=== PATIENT | male | born 1965 | race African-American/Black ===

== ENCOUNTER 2017-01-15 20:10 | Emergency (ER) | payer MEDICARE, OTHER ==
[~2017-01-15] VITALS: Ht 188 cm; Wt 86.2 kg
[~2017-01-15 20:10] MED LIST: PANT40TA3 PO
[2017-01-15 20:16] VITALS: BP 119/62
--- NOTE | 2017-01-15 20:28 | PHYS DOC ---
Past Medical History Past Medical History: Diabetes-Type II, PA Past Surgical History: No Surgical History Alcohol Use: None Drug Use: None Adult General Chief Complaint Chief Complaint: ALTERED MENTAL STATUS [facility] HPI Patient is a 51 year old male presenting to the emergency department for evaluation of confusion. Reportedly patient did not want to get in his care givers vehicle and they thought that he was more confused so he was sent to the emergency department for further evaluation. Patient has no complaints other than he is hungry and thirsty security was given a box lunch and 2 bottles of Gatorade and he says that he is feeling much better now. Caregiver came back and says that he is now his baseline and would like to take him home. Review of Systems Review of Systems Constitutional: Denies fever or chills [] Respiratory: Denies cough or shortness of breath [] Cardiovascular: No additional information not addressed in HPI [] GI: Denies abdominal pain, nausea, vomiting, bloody stools or diarrhea [] Musculoskeletal: Denies back pain or joint pain [] Neurologic: Denies headache, focal weakness or sensory changes [] Allergies Allergies Allergies Coded Allergies Type Severity Reaction Last Updated Verified No Known Drug Allergies 12/28/14 No Physical Exam Physical Exam Constitutional: Well developed, well nourished, no acute distress, non-toxic appearance. [] Cardiovascular:Heart rate regular rhythm, no murmur [] Lungs & Thorax: Bilateral breath sounds clear to auscultation [] Abdomen: Bowel sounds normal, soft, no tenderness, no masses, no pulsatile masses. [] Skin: Warm, dry, no erythema, no rash. [] Back: No tenderness, no CVA tenderness. [] Extremities: No tenderness, no cyanosis, no clubbing, ROM intact, no edema. [] Neurologic: Alert and oriented X 2 Current Patient Data Vital Signs Vital Signs Date Time Temp Pulse Resp B/P (MAP) Pulse Ox O2 Delivery O2 Flow Rate FiO2 01/15/17 20:16 98.8 88 18 119/62 (81) 96 Room Air 98.8 EKG EKG [] Radiology/Procedures Radiology/Procedures [] Course & Med Decision Making Course & Med Decision Making Patient with transient confusion that he has baseline confusion and he is at his baseline now and appears well with normal vital signs and he'll be discharged in stable condition with instructions to return with any concerns. Dragon Disclaimer Dragon Disclaimer This electronic medical record was generated, in whole or in part, using a voice recognition dictation system. Departure Departure Impression: Primary Impression: Confusion Disposition: 01 HOME, SELF-CARE Condition: GOOD Referrals: UNKNOWN PCP NAME (PCP) Patient Instructions: TRAY Paulino DO Jan 15, 2017 20:28
--- NOTE | 2017-01-16 07:39 | RAD ---
Right foot, 3 views, 01/15/2017: History: Great toe pain and discoloration, diabetes No fracture or dislocation is identified. No destructive bony lesion is seen. There is a small inferior calcaneal spur. Faint arterial calcifications are noted. There is mild subcutaneous edema. IMPRESSION: No acute bony abnormality is detected.
[2017-01-16 15:19] LABS: POTASSIUM ISTAT 3.4 mmol/L (3.5-5.0)
== END 2017-01-15 21:49 | disposition home or self-care (01) ==
LOC: ER 20:10
DX: R41.0 Disorientation, unspecified (principal); M79.671 Pain in right foot; I25.2 Old myocardial infarction; E11.9 Type 2 diabetes mellitus without complications
CPT/HCPCS: 73630; 80047; 99284

== ENCOUNTER 2018-01-24 21:53 | Emergency (ER) | payer MEDICARE, OTHER ==
[2018-01-24 22:32] LABS: POC GLUCOSE 439 mg/dL (70-99)
[2018-01-24 22:40] LABS: ADD MAN DIFF? NO
[2018-01-24 22:45] LABS: BASO % 0 % (0-3); EOS # 0.2 x10^3/uL (0.0-0.7); EOS % 2 % (0-3); HEMATOCRIT 35.4 % (39.0-53.0); HEMOGLOBIN 11.9 g/dL (13.0-17.5); LYMPH # 1.7 x10^3/uL (1.0-4.8); LYMPH % 25 % (24-48); MEAN CORPUSCULAR HEMOGLOBIN 29 pg (25-35); MEAN CORPUSCULAR HGB CONC 34 g/dL (31-37); MEAN CORPUSCULAR VOLUME 85 fL (79-100); MONO # 0.9 x10^3/uL (0.0-1.1); MONO % 13 % (0-9); NEUT # 4.2 x10^3uL (1.8-7.7); NEUT % 59 % (31-73); PLATELET COUNT 238 x10^3/uL (140-400); RED BLOOD COUNT 4.15 x10^6/uL (4.30-5.70); RED CELL DISTRIBUTION WIDTH 13.4 % (11.5-14.5)
[2018-01-24 23:00] LABS: ALBUMIN 3.1 g/dL (3.4-5.0); ALBUMIN/GLOBULIN RATIO 0.7 (1.0-1.7); ALK PHOS 99 U/L (46-116); ALT (SGPT) 51 U/L (16-63); ANION GAP 5 (6-14); AST (SGOT) 21 U/L (15-37); BLOOD UREA NITROGEN 11 mg/dL (8-26); BUN/CREATININE RATIO 10 (6-20); CALCIUM 9.2 mg/dL (8.5-10.1); CARBON DIOXIDE 32 mmol/L (21-32); CHLORIDE 94 mmol/L (98-107); CREATININE 1.1 mg/dL (0.7-1.3); GFR 84.7; POTASSIUM 4.3 mmol/L (3.5-5.1); SODIUM 131 mmol/L (136-145); TOTAL BILIRUBIN 0.2 mg/dL (0.2-1.0); TOTAL PROTEIN 7.7 g/dL (6.4-8.2)
[2018-01-24 23:04] LABS: GLUCOSE 540 mg/dL (70-99)
[2018-01-24 23:05] LABS: BILIRUBIN,URINE NEGATIVE (NEG); CLARITY,URINE CLEAR; COLOR,URINE YELLOW; GLUCOSE,URINE >=1000 mg/dL (NEG); NITRITE,URINE NEGATIVE (NEG); PROTEIN,URINE NEGATIVE (NEG-TRACE)
[2018-01-24] MEDS: IV NORMAL SALINE 1000ML BAG 1,000 ML IV (23:06)
[2018-01-24] MEDS: INSULIN REGULAR 100 UNIT/ML 3ML VIAL. IV (23:07)
[2018-01-24 23:13] LABS: BACTERIA,URINE 0 /HPF (0-FEW); RBC,URINE 0 /HPF (0-2); WBC,URINE 0 /HPF (0-4)
[2018-01-25] MEDS: IV NORMAL SALINE 1000ML BAG 1,000 ML IV (00:30)
[2018-01-25 01:07] LABS: POC GLUCOSE 145 mg/dL (70-99)
== END 2018-01-25 01:42 | disposition home or self-care (01) ==
LOC: ER 01-25 01:42
DX: E11.65 Type 2 diabetes mellitus with hyperglycemia (principal); I25.2 Old myocardial infarction
CPT/HCPCS: 36415; 80053; 81001; 82962; 85025; 96361; 96374; 99285-25; J1815; J7030

== ENCOUNTER 2018-01-30 10:13 | Emergency (ER) | payer MEDICARE, OTHER ==
[2018-01-30 10:30] LABS: POC GLUCOSE 352 mg/dL (70-99)
[2018-01-30 10:51] LABS: ADD MAN DIFF? NO
[2018-01-30 10:55] LABS: BASO % 0 % (0-3); EOS % 0 % (0-3); HEMOGLOBIN 12.5 g/dL (13.0-17.5); LYMPH # 1.3 x10^3/uL (1.0-4.8); LYMPH % 12 % (24-48); MEAN CORPUSCULAR HEMOGLOBIN 29 pg (25-35); MEAN CORPUSCULAR HGB CONC 34 g/dL (31-37); MEAN CORPUSCULAR VOLUME 85 fL (79-100); MONO # 1.1 x10^3/uL (0.0-1.1); MONO % 10 % (0-9); NEUT # 8.4 x10^3uL (1.8-7.7); NEUT % 77 % (31-73); PLATELET COUNT 274 x10^3/uL (140-400); RED BLOOD COUNT 4.33 x10^6/uL (4.30-5.70); RED CELL DISTRIBUTION WIDTH 13.3 % (11.5-14.5); WHITE BLOOD COUNT 10.8 x10^3/uL (4.0-11.0)
[2018-01-30 11:00] LABS: BILIRUBIN,URINE NEGATIVE (NEG); CLARITY,URINE CLEAR; COLOR,URINE YELLOW; GLUCOSE,URINE >=1000 mg/dL (NEG); NITRITE,URINE NEGATIVE (NEG); PROTEIN,URINE NEGATIVE (NEG-TRACE); UROBILINOGEN,URINE 0.2 mg/dL (0.2 mg/dL)
[2018-01-30 11:04] LABS: ANION GAP 8 (6-14); BLOOD UREA NITROGEN 12 mg/dL (8-26); BUN/CREATININE RATIO 12 (6-20); CALCIUM 8.9 mg/dL (8.5-10.1); CARBON DIOXIDE 30 mmol/L (21-32); CHLORIDE 96 mmol/L (98-107); GFR 94.6; GLUCOSE 338 mg/dL (70-99); POTASSIUM 3.8 mmol/L (3.5-5.1); SODIUM 134 mmol/L (136-145)
[2018-01-30] MEDS: IV NORMAL SALINE 1000ML BAG 1,000 ML IV ×2 (11:06→11:43)
[2018-01-30 11:10] LABS: ALBUMIN 3.2 g/dL (3.4-5.0); ALBUMIN/GLOBULIN RATIO 0.7 (1.0-1.7); ALK PHOS 91 U/L (46-116); ALT (SGPT) 33 U/L (16-63); AST (SGOT) 19 U/L (15-37); TOTAL BILIRUBIN 0.3 mg/dL (0.2-1.0); TOTAL PROTEIN 7.7 g/dL (6.4-8.2)
[2018-01-30 11:13] LABS: TROPONINI < 0.017 ng/mL (0.000-0.055)
[2018-01-30 11:14] LABS: HYALINE CASTS, URINE FEW /HPF
[2018-01-30 11:15] LABS: BACTERIA,URINE 0 /HPF (0-FEW); WBC,URINE OCC /HPF (0-4)
[2018-01-30 11:34] LABS: POC GLUCOSE 326 mg/dL (70-99)
[2018-01-30] MEDS: ACETAMINOPHEN 500 MG TABLET PO (11:42)
[2018-01-30 12:56] LABS: POC GLUCOSE 276 mg/dL (70-99)
[2018-01-30] MEDS: INSULIN REGULAR 100 UNIT/ML 3ML VIAL. SQ (14:23)
[2018-01-31 00:15] LABS: HEMOGLOBIN A1C 9.4 % (4.8-5.6)
== END 2018-01-30 14:31 | disposition home or self-care (01) ==
LOC: ER 10:13
DX: E11.65 Type 2 diabetes mellitus with hyperglycemia (principal); I25.2 Old myocardial infarction; R51 Headache
CPT/HCPCS: 36415; 70450; 71045; 80053; 81001; 82962; 83036; 84484; 85025; 93005; 96360; 96361; 96372; 99285-25; J7030